=== PATIENT | male | born 1955 | race Caucasian/White ===

== ENCOUNTER 2017-10-03 01:14 | Inpatient (IN) | payer OTHER ==
[~2017-10-03] VITALS: Ht 174 cm; Wt 98.3 kg
[2017-10-03 01:50] LABS: HEMATOCRIT 49.1 % (38.0-50.0); HEMOGLOBIN 17.2 G/DL (12.5-16.6); MCH 30.8 PG (29.0-34.0); MCV 87.8 FL (86-99); RBC DIS.WIDTH-CV 12.8 % (11.8-14.6); RBC DIS.WIDTH-SD 41.5 % (39-53); RED BLOOD COUNT 5.59 M/uL (4.00-5.50)
[2017-10-03 02:00] LABS: ALBUMIN 4.5 g/dL (3.2-4.8); CHLORIDE 104 mEq/L (99-109); POTASSIUM 4.1 mEq/L (3.7-5.4); SODIUM 143 mEq/L (136-147)
[2017-10-03 02:02] LABS: GLUCOSE 125 mg/dL (70-99); TOTAL PROTEIN 7.7 g/dL (6.4-8.3)
[2017-10-03 02:04] LABS: TOTAL BILIRUBIN 1.2 mg/dL (0.0-1.0)
[2017-10-03 02:06] LABS: ALKALINE PHOSPHATASE 93 IU/L (3-129); CREATININE 1.1 mg/dL (0.6-1.3)
[2017-10-03 02:07] LABS: AST (GOT) 19 IU/L (2-34); UREA NITROGEN (BUN) 18 mg/dL (9-23)
[2017-10-03 02:09] LABS: ALT (GPT) 26 IU/L (3-49); LIPASE 6 U/L (1.0-51.0)
[2017-10-03 02:10] LABS: GFR ESTIMATE (CALCULATED) > 59 mL/min/ (58.99-99999)
[2017-10-03 03:46] LABS: PLAT.SUFFICIENCY ADEQUATE; PLATELET COUNT 247 K/uL (156-360)
[2017-10-03 04:03] LABS: APPEARANCE CLEAR ((CLEAR)); BILIRUBIN NEGATIVE; BLOOD NEGATIVE; COLOR YELLOW ((YELLOW)); GLUCOSE (STRIP) NEGATIVE; KETONES 5; LEUKOCYTES TRACE; NITRITE NEGATIVE; PROTEIN (STRIP) 30; UROBILINOGEN 0.2 MG/DL (0.2-1.0)
[2017-10-03 04:05] LABS: BACTERIA NONE SEEN /HPF; EPITHELIAL CELLS RARE /HPF; MUCUS NONE SEEN /LPF; RED BLOOD CELLS 0-5 /HPF (0-5); UCUL ADDED? YES
[2017-10-03 05:56] VITALS: BP 138/94
[2017-10-03 06:20] LABS: HEMATOCRIT 48.3 % (38.0-50.0); HEMOGLOBIN 16.8 G/DL (12.5-16.6); MCH 30.7 PG (29.0-34.0); MCHC 34.8 G/DL (30.0-36.0); MCV 88.3 FL (86-99); PLATELET COUNT 257 K/uL (156-360); RBC DIS.WIDTH-SD 42.2 % (39-53); RED BLOOD COUNT 5.47 M/uL (4.00-5.50)
[2017-10-03 06:51] LABS: ALBUMIN 4.3 G/DL (3.2-4.8); ALKALINE PHOSPHATASE 86 IU/L (3-129); ALT (GPT) 20 IU/L (3-49); AST (GOT) 15 IU/L (2-34); CHLORIDE 105 MEQ/L (99-109); CREATININE 0.9 MG/DL (0.6-1.3); GFR ESTIMATE (CALCULATED) > 59 mL/min/ (58.99-99999); GLUCOSE 146 mg/dL (70-99); SODIUM 142 MEQ/L (136-147); TOTAL BILIRUBIN 0.9 MG/DL (0.0-1.0); UREA NITROGEN (BUN) 17 mg/dL (9-23)
[2017-10-03 08:09] VITALS: BP 141/84
[2017-10-03] MEDS ORDERED: VITAMIN D2000 UNI1 PO (10:35)
[2017-10-03] MEDS ORDERED: NORVASC5 MG PO (10:35)
[2017-10-03] MEDS ORDERED: OMEPRAZOLE40 M1 PO (10:35)
[2017-10-03] MEDS ORDERED: MOVE FREE JOIN1 EACH PO (10:36)
[2017-10-03 10:56] VITALS: BP 137/88
[2017-10-03 15:56] VITALS: BP 132/90
[2017-10-03 19:46] VITALS: BP 132/87
[2017-10-04] VITALS: BP 128/83
[2017-10-04 04:57] VITALS: BP 132/86
[2017-10-04 06:27] LABS: BASOPHIL (%) 0.8 % (0-1); BASOPHIL COUNT 0.1 K/uL (0-0.1); EOSINOPHIL COUNT 0.1 K/uL (0-0.3); HEMATOCRIT 46.9 % (38.0-50.0); HEMOGLOBIN 15.6 G/DL (12.5-16.6); IMMATURE GRANULOCYTE (%) 0.2 % (0.0-0.7); LYMPHOCYTE (%) 24.9 % (15-42); LYMPHOCYTE COUNT 2.2 K/uL (1.0-2.8); MCH 29.7 PG (29.0-34.0); MCHC 33.3 G/DL (30.0-36.0); MCV 89.3 FL (86-99); MONOCYTE (%) 9.2 % (3-12); MONOCYTE COUNT 0.8 K/uL (0-0.8); NEUTROPHIL (%) 63.9 % (45-76); NEUTROPHIL COUNT 5.7 K/uL (1.8-6.4); PLATELET COUNT 243 K/uL (156-360); RBC DIS.WIDTH-CV 13.1 % (11.8-14.6); RBC DIS.WIDTH-SD 43.3 % (39-53); RED BLOOD COUNT 5.25 M/uL (4.00-5.50); WHITE BLOOD COUNT 8.9 K/uL (4.1-10.2)
[2017-10-04 06:52] LABS: CHLORIDE 108 MEQ/L (99-109); CREATININE 1.1 MG/DL (0.6-1.3); GFR ESTIMATE (CALCULATED) > 59 mL/min/ (58.99-99999); POTASSIUM 4.3 MEQ/L (3.7-5.4); SODIUM 146 MEQ/L (136-147); UREA NITROGEN (BUN) 23 mg/dL (9-23)
[2017-10-04 06:54] LABS: GLUCOSE 75 mg/dL (70-99)
[2017-10-04 08:18] VITALS: BP 142/92
[2017-10-04 11:28] VITALS: BP 130/85
[2017-10-04 14:59] VITALS: BP 127/82
[2017-10-04 23:52] VITALS: BP 126/80
[2017-10-05 04:45] VITALS: BP 133/91
[2017-10-05 07:35] VITALS: BP 136/90
[2017-10-05 12:06] VITALS: BP 131/89
[2017-10-05 16:41] VITALS: BP 165/91
[2017-10-05 23:37] VITALS: BP 142/88
[2017-10-06 03:56] VITALS: BP 140/83
[2017-10-06 08:00] VITALS: BP 138/86
[2017-10-06 11:51] VITALS: BP 134/90
[2017-10-06 15:42] VITALS: BP 129/88
== END 2017-10-06 16:01 | disposition home or self-care (01) | DRG 390 ==
LOC: EME 01:14 → 3EAST 04:56 → EDOF 04:56 → ENRESERV 04:58 → 3EAST 05:44
PROVIDERS: Internal Medicine
DX: K56.609 Unspecified intestinal obstruction, unspecified as to partial versus complete obstruction (principal); I10 Essential (primary) hypertension; Q43.0 Meckel's diverticulum (displaced) (hypertrophic); E66.9 Obesity, unspecified; Z68.32 Body mass index [BMI] 32.0-32.9, adult; K21.9 Gastro-esophageal reflux disease without esophagitis; H91.3 Deaf nonspeaking, not elsewhere classified; Z96.21 Cochlear implant status
CPT/HCPCS: 71045; 74019; 74177; 80048; 80053; 81003; 83690; 85025; 85027; 87086; 99281; 99285; J1885; J2405; J3010; J7030; S0028